=== PATIENT | female | born 1975 | race Caucasian/White ===

== ENCOUNTER 2016-09-27 07:58 | Day surgery (SDC) | payer OTHER ==
[~2016-09-27] VITALS: Ht 157.5 cm; Wt 74.4 kg
[~2016-09-27 07:58] MED LIST: CALCIUM + D 6001 TAB PO; CARAFATE 1GM1 G PO; CELEBREX50 MG PO; CITRACAL + D CA1 TAB PO; COLACE 100100 MG/CAP PO; D BIOTIN PO; FELDENE20 MG PO; FLEXERIL5 MG PO; HYDROCODONE PO; IRON325 MG PO; LEVBID0.375 MG PO; MICARDIS40 MG PO; MIRALAX PA17 GM/Dose PO; MULTIPLE VITAMI1 CT1 PO; NEURONTIN300 MG/CAP PO; NEXIUM 40MG40 MG PO; NORCO 325 MG-51 TAB PO; PENNSAID 150 M150 ML TOP; PROTONIX 40MG T40 MG PO; TOPROL XL 25MG25 MG PO; VESICARE 5MG5 MG PO; VITAMIN B-1000 MCG/T PO; VITAMIN B11000 MCG/M IM; VITAMIN D PO; VITAMIN D1000 IU PO
[2016-09-27] MEDS ORDERED: B-12 500 MCG PO (08:13)
[2016-09-27] MEDS ORDERED: MULTIPLE VITAMI1 TA5 PO (08:15)
[2016-09-27] MEDS ORDERED: NATURE'S BLE1000 MCG PO (08:15)
[2016-09-27] MEDS ORDERED: LEXAPRO 10MG10 MG PO (08:16)
[2016-09-27] MEDS ORDERED: CRANBERRY450 MG PO (08:17)
[2016-09-27] MEDS ORDERED: OXYCONTIN 10MG10 MG PO (08:17)
[2016-09-27] MEDS ORDERED: VOLTAREN GEL 1%1 TU TP (08:17)
[2016-09-27 08:18] VITALS: BP 127/66; PULSE 95; TEMP 97.8
[2016-09-27 09:10] VITALS: BP 113/59; PULSE 87; TEMP 98
[2016-09-27 09:25] VITALS: BP 115/63; PULSE 79
[2016-09-27 09:40] VITALS: BP 114/59; PULSE 72
[2016-09-27 09:55] VITALS: BP 102/62; PULSE 77
== END 2016-09-27 10:15 | disposition home or self-care (01) ==
LOC: SDCO 07:58
DX: K29.50 Unspecified chronic gastritis without bleeding (principal); K21.9 Gastro-esophageal reflux disease without esophagitis; Z98.84 Bariatric surgery status; Z79.899 Other long term (current) drug therapy; Z96.651 Presence of right artificial knee joint
CPT/HCPCS: J2250; J3010; J7030

== ENCOUNTER → 2017-12-03 | Outpatient (CLI) | payer OTHER ==
[~2017-12-03] VITALS: Ht 157.5 cm; Wt 82.1 kg
[~2017-12-03] MED LIST changes: +B-12 500 MCG PO; +CRANBERRY450 MG PO; +FLEXERIL 1010 MG/TAB PO; -FLEXERIL5 MG PO; +LEXAPRO 10MG10 MG PO; +MULTIPLE VITAMI1 TA5 PO; +NATURE'S BLE1000 MCG PO; +OXYCONTIN 10MG10 MG PO; +VOLTAREN GEL 1%1 TU TP
[2017-12-03 16:00] VITALS: BP 142/80; PULSE 84
== END ==
LOC: LIGHT 09:25
DX: Z98.84 Bariatric surgery status (principal); Z68.33 Body mass index [BMI] 33.0-33.9, adult; Z71.3 Dietary counseling and surveillance
CPT/HCPCS: G0463